=== PATIENT | female | born 1990 | race Caucasian/White ===

== ENCOUNTER 2022-09-22 00:18 | Day surgery (SDC) | payer BC, SELFPAY ==
[2022-09-15 17:09] VITALS: BMI 39.2
--- NOTE | 2022-09-15 17:19 | PC.NURSE ---
Report to the Outpatient Waiting Room, entrance under the green pavilion located off [facility], at time 1045 on date 09/22/22. Planned Procedure Time: 1245. Time changes happen often and if your time is changed the preop area will call you the afternoon before. - You and your visitor will be asked to self-screen and do not enter if you have any COVID symptoms. - We encourage only one visitor and NO visitors under age 16 are allowed at this time. Your visitor will receive communication by the phone number that is given day of service. - The patient visitor is requested to social distance or may leave the building when not with patient due to restrictions. - A mask is required within the hospital. Patients may have clear liquids (water, carbonated beverages, clear teas, apple juice) until 3 hours prior to surgery with a maximum of 20 ounces. 0945 - No food from midnight until time of surgery - Infants may have breast milk until 4 hours before surgery, formula 6 hours prior to surgery. - Children will be allowed to drink immediately following surgery. If applicable, please bring a bottle or sippy cup to assist with drinking. Juice, water, soda, and popsicles are readily available. For infants on formula, please bring formula the day of surgery. Pacifiers are allowed. Take the following medications with a SIP of water the morning of surgery: lexapro, lamictal Medications to discontinue per physician n/a Date to take last dose n/a Please no make-up, nail faroese, hairspray, perfume, deodorant, or body powder the day of surgery. No jewelry (including any body piercings) or valuables the day of surgery, leave them at home. Please take a shower or bath the night before, or the morning of, surgery with an antibacterial soap. Wear comfortable, loose fitting clothing. Children are encouraged to wear pajamas. - Jewelry must be removed prior to entering the operating room. Rings and piercings that are not removed may be cut off. - The hospital will not accept responsibility for valuables. - Please leave all valuables, including medications, at home the day of surgery. If you are going home after surgery, a licensed cement mixer driver must drive you home. - NO public transportation without another adult. - We recommend that an adult stay with you for 24 hours following discharge. - We also recommend that you do not drive, make important decision, drink alcoholic beverages, or take any drugs that were not prescribed by your health care provider for at least 24 hours after your discharge time. For Pediatric surgeries, we recommend two adults accompany the child home. Follow any additional instructions given to you from your surgeon. If you or anyone in your household have experienced Covid symptoms in the past week, please notify your surgeon or the nurse liaison at the phone number below for possible testing. Telephone instructions given to Meagan Leija and asked if any additional questions and then verbalized understanding. Patient advised to call surgeon office or pre surgery nurse liaison [phone] if any additional questions.
--- NOTE | 2022-09-21 07:48 | PM.IMHP ---
H&P: HPI History of Present Illness Date/Time: 09/21/22 07:48 Chief Complaint: undesired future fertility Narrative: Meagan is a 32yo G0, who presented as a new patient for [facility]; pap normal 08/2022. She is on tri-sprintec and reports her cycles are regular, not too heavy or painful-- does not want to keep taking the pill and wants to proceed with tubal as she does not desire any children. She is sexually active w/o issue. No breast issues. She reports a h/o normal pap smears. Review of Systems Review of Systems: All systems reviewed & are unremarkable except as noted in HPI and below PMFSH Past Medical History Medical History Anxiety and depression Obesity Surgical History Surgical History History of tonsillectomy Family History Family History Other Diabetes mellitus paternal aunt Grandparent Breast cancer maternal grandmother Social History Social History Smoking status: Never smoker Alcohol intake: current Alcohol use details: socially- 1/month Substance use: current Substance use type: marijuana Other substance usage details: once per week- smoking,edibles,gummies Gender identity (if verbalized by the patient): Female Sexual Orientation (if Verbalized by the Patient): Straight or Heterosexual Spiritual care concerns: No Meds Home Medications and Allergies Home Medications Medication Instructions Recorded Confirmed Type escitalopram oxalate 20 mg tablet 20 mg PO DAILY 08/18/22 09/15/22 History (Lexapro) lamotrigine 200 mg tablet 100 mg PO BID 08/18/22 09/15/22 History norgestimate-ethinyl estradiol 1 tablet PO HS 09/15/22 09/15/22 History 0.18 mg/0.215mg/0.25mg-35 mcg(28)tablet (Tri-Sprintec (28)) Allergies Allergy/AdvReac Type Severity Reaction Status Date / Time No Known Allergies Allergy Verified 09/15/22 17:06 Exam Const: General: cooperative, comfortable, no acute distress and obese Resp: Effort & Inspection: normal respiratory effort Cardio: Rate: regular rate GI: Inspection: normal to inspection GI Palp: No abdominal tenderness and Yes Soft to palpation : Other: deferred to OR Skin: General skin exam: normal color Neuro: General: patient oriented x3 Extrem: General: normal to inspection Psych: Appearance: grossly normal Affect: normal affect Attitude: cooperative Assessment and Plan Assessment and plan (1) Encounter for sterilization: Code(s): Z30.2 - Encounter for sterilization Status: Acute Plan - proceed with laparoscopic bilateral salpingectomy - risks and benefits discussed in detail. - Patient is aware this is permanent sterilization and that there are other options for control (IUD, implant, nuvaring, vasectomy) and that the only way to conceive after this procedure would be to undergo IVF (which can cost > $20,0000 per cycle and does not guarantee a ).
[2022-09-22] VITALS (9 sets, daily range): BP systolic 116–133; BP diastolic 64–87; PULSE 74–95; RESP 13–22; TEMP 36.2–36.6; O2SAT 92–100
[2022-09-22] MEDS: ACETAMINOPHEN 500 MG TABLET 1000 MG PO (11:17)
[2022-09-22] MEDS: KETOROLAC 15 MG/ML VIAL (*BKC) IV PUSH (11:27)
[2022-09-22] MEDS: LACTATED RINGERS 1,000 ML 30 ML IV CONT ×2 (11:27→14:09)
--- NOTE | 2022-09-22 11:32 | WPDANESEPPF ---
Anes - Initial Pre Proc Eval Procedure: Operation Date: 09/22/22 12:45 Proposed Procedures p Bilateral Laparoscopic Salpingectomy - Tyesha Howell MD Date/Time: 09/22/22 11:32 Surgeon: Tyesha Howell MD Pre Op Diagnosis: desires sterilization Patient Data Age: 32 Gender: F Height: 1.7 m Weight: 113.2 kg Last Vital Signs Temp 36.6 C 09/22/22 10:53 Pulse 74 09/22/22 10:53 Resp 16 09/22/22 10:53 BP 131/79 09/22/22 10:53 Pulse Ox 100 09/22/22 10:53 O2 Del Method Room Air 09/22/22 10:53 Allergies Allergy/AdvReac Type Severity Reaction Status Date / Time No Known Allergies Allergy Verified 09/22/22 11:07 Home Medications Medication Instructions Recorded Confirmed Type escitalopram oxalate 20 mg tablet 20 mg PO DAILY 08/18/22 09/22/22 History (Lexapro) lamotrigine 200 mg tablet 100 mg PO BID 08/18/22 09/22/22 History norgestimate-ethinyl estradiol 1 tablet PO HS 09/15/22 09/22/22 History 0.18 mg/0.215mg/0.25mg-35 mcg(28)tablet (Tri-Sprintec (28)) Patient hx anesthesia problems: post op nausea/vomiting Family hx anesthesia problems: none Results Review: All pre-operative results and documents have been reviewed as part of the pre-operative evaluation. [facility] Past Medical History Medical History Anxiety and depression Obesity Surgical History Surgical History History of tonsillectomy Family History Family History Other Diabetes mellitus paternal aunt Grandparent Breast cancer maternal grandmother Social History Social History Smoking status: Never smoker Alcohol intake: current Alcohol use details: socially- 1/month Substance use: current Substance use type: marijuana Other substance usage details: once per week- smoking,edibles,gummies Living arrangements: with roommate(s) Gender identity (if verbalized by the patient): Female Sexual Orientation (if Verbalized by the Patient): Straight or Heterosexual Spiritual care concerns: No Anes - Eval Final PreProcedure Day of Procedure 09/22/22 11:32 Patient weight: obese Heart: regular rate and rhythm Lungs: clear to auscultation Airway: Mallampati scale class II Neurological: alert and oriented Last oral intake: >/= 8 hours ASA classification: II Emergent: no Anesthetic plan: proceed Anesthesia type and monitoring: general ETT and standard monitoring Results Review: All pre-operative results and documents have been reviewed as part of the pre-operative evaluation. Informed Consent: The patient's anesthetic plan and its attendant risks and benefits were discussed with the patient/family/POA. Questions were solicited and answers provided to the satisfaction of the patient/family/POA.
[2022-09-22] MEDS: SCOPOLAMINE 1.5 MG PATCH TRANSDERM (11:38)
--- NOTE | 2022-09-22 11:43 | WPDHPUPDATE1 ---
History and Physical Update Update Date/Time: 09/22/22 11:43 History and Physical has been reviewed, including an updated exam of the patient. There are NO changes in the patient's condition. Risks, benefits, and alternatives have been discussed and questions answered. Patient agrees to proceed with procedure.
[2022-09-22] MEDS: BUPIVACAINE/EPINEPHRINE 0.25% 50 ML VIAL 20 ML INFILTRATE (13:58)
--- NOTE | 2022-09-22 14:04 | W.PM.PROC2 ---
Procedure Note - Detailed Date of Procedure 09/22/22 Pre-op Diagnosis desires sterilization Post-op Diagnosis Same Procedure Performed Laparoscopic bilateral salpingectomy Surgeon Tyesha Howell MD Stave Log Cut Off Saw Operator Hellen Anesthesia General and Local (20cc of 0.25% marcaine w/ epi) Findings Uterus sounded to 7cm, normal cervix. Normal uterus, bilateral fallopian tubes and ovaries. Good hemostasis at end of case. Description of Procedure Meagan was taken to the operating room where she was placed under general endotracheal anesthesia without complications. She was then prepped and draped in the usual sterile fashion in the dorsal lithotomy position with her legs in low Jamar stirrups and her arms tucked at her side with a strap over her chest. A time-out was performed and no preoperative antibiotics were indicated. My attention was turned down below where her bladder was drained via straight catheterization. A bivalve speculum was then placed within the vagina where the cervix was easily identified. The anterior lip of the cervix was grasped with a single-tooth tenaculum, the uterus was sounded, the cervix was serially dilated, and a diagnostic uterine manipulator was placed without complications. My gloves were changed and my attention was turned to her abdomen. An umbilical incision was made, and a 5 mm trocar was placed under direct visualization without complications. Once intra-abdominal placement was confirmed the abdomen was insufflated with carbon dioxide gas. She was then placed in Trendelenburg and two additional 5 mm ports were placed in the left and right lower quadrants under direct visualization without complications. The above findings were noted. The left fallopian tube was then elevated and the mesosalpinx was serially clamped, coagulated, transected using the LigaSure device until the proximal end of the fallopian tube was reached. The proximal end of the fallopian tube was cross clamped, coagulated, and transected. The tube was then removed from the abdomen. The same procedure was then performed on the right side without any complications. Good hemostasis was noted. All instruments were removed from the abdomen. The insufflation was released and the trocars were removed. The 3 laparoscopic incision sites were reapproximated using 4-0 Monocryl and covered with Dermabond. The incisions were then infiltrated using 0.25% Marcaine with epi for better pain control. The uterine manipulator was removed. Sponge, lap, instrument, and needle counts were correct at the end of the procedure. Patient was awoken from general anesthesia and taken to recovery with plans of same-day discharge home. Estimated Blood Loss 5 IV Fluids 1,000 Urine Output 100 Pathology Yes (left and right falllopian tubes) Complications No immediate complications Condition Stable Disposition Same day [facility] Billing Surgery - Charge Forward: Surgery Billing
[2022-09-22] MEDS: ONDANSETRON INJ 4 MG/2 ML VIAL IV PUSH (15:32)
== END 2022-09-22 16:22 | disposition home or self-care (01) ==
PROVIDERS: PCP Nurse Practitioner Adult Health; Visit Provider Obstetrics & Gynecology
PROC: (CPT 49320; principal; 2022-09-22 12:45)
DX: Z30.2 Encounter for sterilization (principal); N83.8 Other noninflammatory disorders of ovary, fallopian tube and broad ligament; F41.8 Other specified anxiety disorders; E66.9 Obesity, unspecified; Z68.39 Body mass index [BMI] 39.0-39.9, adult; F12.90 Cannabis use, unspecified, uncomplicated
CPT/HCPCS: 58661; 88302; A9270; J0330; J1100; J1170; J1885; J2250; J2405; J2704; J3010; J7030; J7120

== ENCOUNTER → 2023-05-04 14:05 | Outpatient (CLI) | payer BC, SELFPAY ==
--- NOTE | ~2023-05-04 | MM_ITS ---
EXAMINATION: MM screening diego BI w yvan HISTORY: Screening mammogram TECHNIQUE: Craniocaudal and mediolateral oblique 3-D tomosynthesis images were obtained and synthetic 2-D images were generated. CAD analysis was submitted and interpreted. COMPARISON: No prior mammogram is available for comparison at this institution. BREAST PARENCHYMAL COMPOSITION: There are scattered areas of fibroglandular density. FINDINGS: There is no evidence of suspicious mass, calcification, or architectural distortion to sugg est malignancy in either breast. There has been no suspicious interval change. IMPRESSION: 1. No mammographic evidence of malignancy. 2. Recommend routine screening mammography in one year. BI-RADS Category 1: Negative Reviewed, dictated and finalized at location A.
== END ==
PROVIDERS: PCP Nurse Practitioner Family; Visit Provider Nurse Practitioner Family
DX: Z12.31 Encounter for screening mammogram for malignant neoplasm of breast (principal); Z80.3 Family history of malignant neoplasm of breast
CPT/HCPCS: 77063; 77067

== ENCOUNTER 2024-06-20 07:45 | Outpatient (CLI) | payer BC, SELFPAY ==
--- NOTE | ~2024-06-20 | US_ITS ---
EXAMINATION: US thyroid DATE: 06/20/2024 08:09 INDICATION: Neck fullness. TECHNIQUE: Multiple ultrasound images of the thyroid were obtained. COMPARISON: None. FINDINGS: The right thyroid lobe measures 4.6 x 1.2 x 1.5 cm. The left thyroid lobe measures 3.8 x 1.0 x 1.2 c m. In the right thyroid lobe, there is a 6 mm solid, hypoechoic, wider than tall nodule with smooth margin without echogenic foci (TI-RADS TR4). IMPRESSION: 1. Small thyroid nodule, likely not clinically significant. No follow-up is needed. Reviewed, dictated and finalized at location A. IMPRESSION: 1. Small thyroid nodule, likely not clinically significant. No follow-up is nee ded.
== END 2024-06-20 07:46 ==
LOC: MICIMG 07:46
DX: E04.1 Nontoxic single thyroid nodule (principal); R22.1 Localized swelling, mass and lump, neck
CPT/HCPCS: 76536

== ENCOUNTER 2024-09-01 03:35 | Emergency (ER) | payer BC, SELFPAY ==
[2024-09-01 03:38] VITALS: BP 138/99; PULSE 83; RESP 17; TEMP 36.4; O2SAT 99
--- NOTE | 2024-09-01 03:57 | PC.NURSE ---
ok with corinne keith to remove piercing. Piercing has been removed by gaston self.
--- NOTE | 2024-09-01 04:12 | ED.EAR ---
HPI - Ear Problem General Chief complaint: Ear Stated complaint: Infected ear piercing, right ear Time Seen by Provider: 09/01/24 03:41 History of Present Illness HPI Narrative: Patient is a 34-year-old female who presents to the emergency department this morning due to concern for right ear piercing infection. Patient states that she had her cartilage pierced approximately 1 week ago and was having a hard time removing the piercing as the area around it has swelled and patient is now concerned that she is developing an infection. She denies any fevers or chills at home and denies any additional symptoms or concerns at this time. Related Data Home Medications Medication Instructions Recorded Confirmed lamotrigine 200 mg tablet 100 mg PO BID 08/18/22 10/02/22 lumateperone 10.5 mg capsule 10.5 mg PO DAILY 11/09/23 (Caplyta) venlafaxine 100 mg tablet 150 mg PO DAILY 11/09/23 Allergies Allergy/AdvReac Type Severity Reaction Status Date / Time No Known Allergies Allergy Verified 09/01/24 03:40 Review of Systems Review of Systems: All systems are reviewed and are negative unless stated otherwise in the HPI. [facility] Past Medical History Medical History Anxiety and depression Obesity Surgical History Surgical History H/O bilateral salpingectomy (09/22/22) laparoscopic bilateral salpingectomy History of appendectomy (03/11/24) History of tonsillectomy Family History Family History Other Diabetes mellitus paternal aunt Grandparent Breast cancer maternal grandmother Social History Social History Smoking status: Never smoker Alcohol intake: current Alcohol use details: rarely Substance use: current Substance use type: marijuana Other substance usage details: once/mo - smoking,edibles,gummies Current Housing: Decline to Answer Concerned About Future Housing: Decline to Answer Difficulty Paying Gas/Electric Bills: Decline to Answer Difficulty Paying for Meds: Decline to Answer Currently Unemployed: Decline to Answer Education: Decline to Answer Difficulty w/ Childcare or Family Care: Decline to Answer Living arrangements: alone Occupation/Education: occupation Gender identity (if verbalized by the patient): Female Sexual Orientation (if Verbalized by the Patient): Straight or Heterosexual Spiritual care concerns: No Exam Narrative: General: Alert, awake, afebrile, in no acute distress. HEENT: PERRL, no rhinorrhea, no post nasal drip, oropharynx clear, ear piercing noted in the right antehelix with surrounding swelling and mild erythema, tender to touch, no evidence of auricular hematoma. Cardiovascular: Regular rate and rhythm, no murmurs, rubs or gallops, no peripheral edema. Respiratory: Clear to auscultation bilaterally, no tachypnea, no wheezing, no rhonchi, no rubs, no respiratory distress. Abdomen: Soft, nontender, nondistended, no rebound, no guarding, no peritoneal signs. Musculoskeletal: No joint swelling or deformity, normal muscle tone. Skin: No rashes or petechia, no signs of infection. Neurological: Alert and oriented to person, place, and time. Follows all commands. No focal deficits, speech is clear and fluent. Course Vital Signs Vital signs: Vital Signs Temperature 97.5 F L 09/01/24 03:38 Pulse Rate 83 09/01/24 03:38 Respiratory Rate 17 09/01/24 03:38 Blood Pressure 138/99 H 09/01/24 03:38 Pulse Oximetry 99 09/01/24 03:38 Oxygen Delivery Room Air 09/01/24 03:38 Temperature 97.9 F 09/01/24 04:24 Pulse Rate 68 09/01/24 04:24 Respiratory Rate 16 09/01/24 04:24 Blood Pressure 115/63 09/01/24 04:24 Pulse Oximetry 98 09/01/24 04:24 Oxygen Delivery Room Air 09/01/24 03:38
[2024-09-01 04:24] VITALS: BP 115/63; PULSE 68; RESP 16; TEMP 36.6; O2SAT 98
== END 2024-09-01 04:25 | disposition home or self-care (01) ==
PROVIDERS: Emergency Provider Emergency Medicine
DX: H61.001 Unspecified perichondritis of right external ear (principal); F41.9 Anxiety disorder, unspecified; F32.A Depression, unspecified
CPT/HCPCS: 99283